=== PATIENT | male | born 1935 | race Caucasian/White ===

== ENCOUNTER 2017-07-01 06:15 | Emergency (ER) | payer MEDICARE, BC ==
[~2017-07-01] VITALS: Ht 172.7 cm; Wt 71.2 kg
[~2017-07-01 06:15] MED LIST: LACT1CAP72 GT; LISI5TAB45 PO; LORA2VIA11 IV; METO50TA7 PO; QUET25TA PO; SPIR25TA PO
--- NOTE | 2017-07-01 06:20 | NUR ---
82 YO FEMALE BB RA FROM HOME. PATIENT IS ALERT AND ORIENTED X 3, PATIENT STATES SHE FEELS WEAK. NO SINGLE SIDED WEAKNESS NOTED, NO FACIAL DROOP, ALL EXTREMITIES MOVING FREELY. PATIENT ASSISTED TO ER BED BY EMS. PATIENT GOWNED, PLACED ON PRODUCE WEIGHER. SKIN WARM AND DRY, RESP EVEN AND UNLABORED. AWAITING ORDERS FROM PROVIDER, WILL CONTINUE TO MONITOR
[2017-07-01] MEDS ORDERED: IV NS 0.9% 500 ML BAG IV ONE (06:30)
--- NOTE | 2017-07-01 06:30 | NUR ---
MEDICATED PT ORDERED
--- NOTE | 2017-07-01 06:33 | NUR ---
EMT AT BED SIDE FOR EKG
--- NOTE | 2017-07-01 06:45 | NUR ---
VITAL SIGNS UPDATED.
[2017-07-01 07:27] LABS: BASOPHILS % (AUTO) 0.7 % (0.0-2.0); EOSINOPHILS # (AUTO) 0.1 /CMM (0.0-0.7); EOSINOPHILS % (AUTO) 1.9 % (0.0-6.0); HEMATOCRIT 37 % (39-51); HEMOGLOBIN 13.1 g/dL (13.5-17.5); LYMPHOCYTES # (AUTO) 1.2 /CMM (0.8-4.8); LYMPHOCYTES % (AUTO) 19.3 % (20.0-44.0); MEAN CORPUSCULAR HEMOGLOBIN 32 PG (26.0-33.0); MEAN CORPUSCULAR HGB CONC 35 g/dl (31.0-36.0); MEAN CORPUSCULAR VOLUME 90 fL (80-96); MONOCYTES # (AUTO) 0.5 /CMM (0.1-1.30); MONOCYTES % (AUTO) 8.8 % (2.0-12.0); NEUTROPHILS # (AUTO) 4.2 /CMM (1.8-8.9); NEUTROPHILS % (AUTO) 69.3 % (43.0-81.0); PLATELET COUNT (AUTO) 202 /CMM (150-450); RDW COEFFICIENT OF VARIATION 14.1 (11.5-15.0); RED BLOOD CELL COUNT(AUTO) 4.16 MIL/uL (4.5-6.0); WHITE BLOOD COUNT (AUTO) 6.1 K/uL (4.3-11.0)
[2017-07-01 07:38] LABS: CALCIUM, SERUM 9.1 mg/dL (8.5-10.1); CARBON DIOXIDE 25 mmol/L (21-32); CHLORIDE 101 mmol/L (98-107); CREATININE 1.3 mg/dL (0.6-1.3); GLUCOSE 145 mg/dL (74-106); POTASSIUM 3.4 mmol/L (3.5-5.1); SODIUM SERUM 139 mmol/L (136-145); UREA NITROGEN, BLOOD 21 mg/dL (7-18)
[2017-07-01 07:41] LABS: INR 2.35 (0.87-1.13)
[2017-07-01 07:44] LABS: ALANINE AMINOTRANSFERASE 17 U/L (12-78); ALBUMIN 3.7 g/dL (3.4-5.0); ALKALINE PHOSPHATASE 50 U/L (46-116); ASPARTATE AMINOTRANSFERASE 18 U/L (15-37); BILIRUBIN,TOTAL 0.7 mg/dL (0.2-1.0); TOTAL PROTEIN, SERUM 7.6 g/dL (6.4-8.2)
[2017-07-01 07:48] LABS: TROPONIN I < 0.017 ng/mL (0.00-0.056)
[2017-07-01] MEDS ORDERED: IV NS 0.9% 1,000 ML BAG IV ONE (08:00)
[2017-07-01 08:33] LABS: BILIRUBIN,DIRECT 0.2 mg/dL (0.0-0.2)
--- NOTE | 2017-07-01 08:56 | NUR ---
URINE SAMPLE COLLECTED AND SENT TO LAB
[2017-07-01 08:59] LABS: APPEARANCE,URINE SL CLOUDY (CLEAR); BILIRUBIN,URINE NEGATIVE (NEGATIVE); BLOOD, URINE NEGATIVE Ery/uL (NEGATIVE); COLOR,URINE YELLOW (YELLOW); KETONES,URINE NEGATIVE (NEGATIVE); LEUKOCYTE ESTERASE ,URINE NEGATIVE (NEGATIVE); NITRITE, URINE NEGATIVE (NEGATIVE); PROTEIN,URINE NEGATIVE (NEGATIVE); UGLUCOSE NEGATIVE (NEGATIVE); UROBILINOGEN,URINE 0.2 EU/dL (0.2)
[2017-07-01 10:59] VITALS: BP 130/80
--- NOTE | 2017-07-01 11:00 | NUR ---
Patient discharged to home in stable condition. Written and verbal after care instructions given. Patient verbalizes understanding of instruction.IV removed. Catheter intact and site benign. Pressure and 4x4 applied to site. No bleeding noted.
== END 2017-07-01 11:00 | disposition home or self-care (01) ==
LOC: ER 06:16
DX: R53.1 Weakness (principal); I11.0 Hypertensive heart disease with heart failure; I50.9 Heart failure, unspecified; I48.91 Unspecified atrial fibrillation; Z85.46 Personal history of malignant neoplasm of prostate; Z88.0 Allergy status to penicillin
CPT/HCPCS: 36415; 71045-TC; 80048-TC; 80076-TC; 81000-TC; 84484-TC; 85025-TC; 85730-TC; A4606; J7030; J7040; Z7610

== ENCOUNTER 2018-01-11 02:59 | Inpatient (IN) | payer MEDICARE, BC ==
[2018-01-11] VITALS (8 sets, daily range): BP systolic 117–147; BP diastolic 61–97
[~2018-01-11] VITALS: Ht 174 cm; Wt 78.5 kg
--- NOTE | 2018-01-11 03:10 | NUR ---
PT [id number] FR HOME FOR C/O LLQ ABD PAIN X1DAY. PT DENIES N/V, BLOOD IN STOOL, DIARRHEA. PT STATES LAST BOWEL MOVEMENT WAS TODAY BEFORE ARRIVAL. PT IS AAOX4. RESPIRATIONS EVEN AND UNLABORED. SKIN WARM AND INTACT. NO ACUTE DISTRESS NOTED. PT PLACED IN GOWN AND ON MONITOR.
--- NOTE | 2018-01-11 03:13 | NUR ---
MD AT BEDSIDE FOR EVALUATION
--- NOTE | 2018-01-11 03:20 | NUR ---
IV INITIATED RIGHT ARM 18G. LABS DRAWN FROM SITE. BLOOD GIVEN TO GLASS SCULLION AT BEDSIDE
[2018-01-11 03:26] LABS: BASOPHILS % (AUTO) 0.4 % (0.0-2.0); EOSINOPHILS % (AUTO) 2.2 % (0.0-6.0); HEMATOCRIT 43 % (39-51); HEMOGLOBIN 13.8 g/dL (13.5-17.5); LYMPHOCYTES # (AUTO) 1.1 /CMM (0.8-4.8); LYMPHOCYTES % (AUTO) 19.4 % (20.0-44.0); MEAN CORPUSCULAR HEMOGLOBIN 30 PG (26.0-33.0); MEAN CORPUSCULAR HGB CONC 32 g/dl (31.0-36.0); MEAN CORPUSCULAR VOLUME 93 fL (80-96); MONOCYTES # (AUTO) 0.5 /CMM (0.1-1.30); MONOCYTES % (AUTO) 9.1 % (2.0-12.0); NEUTROPHILS % (AUTO) 68.9 % (43.0-81.0); PLATELET COUNT (AUTO) 222 /CMM (150-450); RDW COEFFICIENT OF VARIATION 14.1 (11.5-15.0); RED BLOOD CELL COUNT(AUTO) 4.67 MIL/uL (4.5-6.0); WHITE BLOOD COUNT (AUTO) 5.9 K/uL (4.3-11.0)
[2018-01-11 03:42] LABS: CALCIUM, SERUM 9.1 mg/dL (8.5-10.1); CARBON DIOXIDE 26 mmol/L (21-32); CHLORIDE 99 mmol/L (98-107); CREATININE 1.4 mg/dL (0.6-1.3); GLUCOSE 136 mg/dL (74-106); POTASSIUM 3.2 mmol/L (3.5-5.1); SODIUM SERUM 136 mmol/L (136-145); UREA NITROGEN, BLOOD 18 mg/dL (7-18)
--- NOTE | 2018-01-11 03:45 | NUR ---
PT BROUGHT BY RADIOLOGY FOR CT
[2018-01-11 03:51] LABS: ALANINE AMINOTRANSFERASE 21 U/L (12-78); ALKALINE PHOSPHATASE 61 U/L (46-116); ASPARTATE AMINOTRANSFERASE 22 U/L (15-37); BILIRUBIN,DIRECT 0.1 mg/dL (0.0-0.2); BILIRUBIN,TOTAL 0.6 mg/dL (0.2-1.0); LIPASE 408 U/L (73-393); TOTAL PROTEIN, SERUM 7.7 g/dL (6.4-8.2)
--- NOTE | 2018-01-11 03:54 | NUR ---
PT BROUGHT BACK FROM CT
--- NOTE | 2018-01-11 04:13 | NUR ---
URINE COLLECTED. CALLED LAB FOR PIPELINE WELDER
[2018-01-11 04:27] LABS: APPEARANCE,URINE CLEAR (CLEAR); BILIRUBIN,URINE NEGATIVE (NEGATIVE); BLOOD, URINE NEGATIVE Ery/uL (NEGATIVE); COLOR,URINE YELLOW (YELLOW); KETONES,URINE NEGATIVE (NEGATIVE); LEUKOCYTE ESTERASE ,URINE NEGATIVE (NEGATIVE); NITRITE, URINE NEGATIVE (NEGATIVE); PROTEIN,URINE NEGATIVE (NEGATIVE); UGLUCOSE NEGATIVE (NEGATIVE); UROBILINOGEN,URINE 0.2 EU/dL (0.2)
--- NOTE | 2018-01-11 04:46 | NUR ---
ROOM 304-2
[2018-01-11] MEDS ORDERED: FLAGYL/NS RTU 500 MG/100 ML PIGGYBACK IV ONE (05:00)
[2018-01-11] MEDS ORDERED: CIPROFLOXACIN IV RTU 400 MG in PREMIX 1 EA IV SCH (05:00)
[2018-01-11] MEDS ORDERED: METRONIDAZOLE 500MG/ NS 100ML 100 ML IV ONE (05:16)
[2018-01-11 05:23] LABS: B-TYPE NATRIURETIC PEPTIDE 291 PG/ML (0-125); TROPONIN I < 0.017 ng/mL (0.00-0.056)
--- NOTE | 2018-01-11 05:28 | NUR ---
REPORT GIVEN TO JERONIMO ARREDONDO FOR HILARY
[2018-01-11] MEDS ORDERED: CIPROFLOXACIN IV RTU 200 ML IV ONE (05:30)
[2018-01-11 05:31] LABS: INR 1.05 (0.87-1.13)
--- NOTE | 2018-01-11 05:53 | NUR ---
PT TRANSFERRED TO 304-2 PER ACLS PROTOCOL
--- NOTE | 2018-01-11 06:36 | NUR ---
RN ADMITTING NOTE; ADMITTED A 82 Y/O, M. A, OX4. BREATHING EVENLY. NO SOB/ NAD. SKIN WARM AND DRY, PT AMBULATED THE BED. VSS. NO C/O PAIN OR DISCOMFORT AT THIS TIME. REPORTED FEELING MUCH BETTER, KEPT PT NPO TILL FURTHER ORDER FROM THE MD. PT IS RECEIVING CIPRO IV AT THIS TIME W/ NO A/R. IV SITE INTACT AND PATENT W/ NO S/S OF INFX OR INFILTRATION. NEEDS ATTENDED . BED LOW LOCKED. CALL LIGHT WITHIN REACH. WILL CONT TO MONITOR AND WILL F/U W/ MD'S ORDERS ./
--- NOTE | 2018-01-11 06:40 | NUR ---
PT DOES NOT HAVE THE LIST OF HIS HOME MEDS WITH HIM AND DOES NOT RECALL THEM AT HIS TIME. PCP'S INFO (DR. CARTWRIGHT [phone] AND PHARMACY'S INFO : [facility] [phone] WS OBTAINED FROM THE PT. WILL ENDORSE TO AM SHIFT FOR F/U.
[2018-01-11] MEDS ORDERED: ACETAMINOPHEN 650 MG/SUPP.RECT RC PRN (07:00)
[2018-01-11] MEDS ORDERED: ENALAPRILAT DIHYD. (2.5MG/ML) 1.25 MG/ML VIAL IV PRN (07:00)
[2018-01-11] MEDS ORDERED: ONDANSETRON HCL/PF 4 MG/2 ML VIAL IVP PRN (07:00)
[2018-01-11] MEDS ORDERED: Potassium Chloride 20 MEQ in IV D5/0.45 NACL 1,000 ML IV PRN (07:00)
[2018-01-11] MEDS ORDERED: MORPHINE SULFATE INJ 4 MG/ML DISP.SYRIN IV PRN (07:00)
--- NOTE | 2018-01-11 07:30 | NUR ---
TELE/RN OPENING NOTE PATIENT IS RECEIVED IN BED AWAKE. ALERT AND ORIENTED X3. HARD OF HEARING. DENIES SOB. RESPIRATION REGULAR AND UNLABORED. DENIES PAIN. EXTERNAL TELE MONITOR ON AND READING CONTROLLED AFIB. RFA G 18 PATENT AND SALINE LOCKED. PATIENT NPO. BED LOW AND LOCKED. SIDE RAILS UP X3. CALL LIGHT WITHIN REACH. WILL CONTINUE TO MONITOR.
[2018-01-11] MEDS ORDERED: LEVOFLOXACIN 500 MG /D5W 100ML 500 MG in PREMIX 1 EA IV ONE (09:00)
[2018-01-11] MEDS: METOPROLOL TARTRATE 25 MG TABLET PO SCH ×2 (09:00→21:11)
[2018-01-11] MEDS: ASPIRIN 81 MG TAB.CHEW PO SCH (09:00)
[2018-01-11] MEDS ORDERED: PANTOPRAZOLE 40 MG VIAL IV SCH (09:00)
[2018-01-11] MEDS ORDERED: SERT25TA5 PO (09:30)
[2018-01-11] MEDS ORDERED: PANT40TA4 PO (09:30)
[2018-01-11] MEDS ORDERED: LEVO100T9 PO (09:30)
[2018-01-11] MEDS ORDERED: FURO40TA5 PO (09:30)
[2018-01-11] MEDS ORDERED: POTA10TA15 PO (09:30)
[2018-01-11] MEDS ORDERED: RIVA10TA PO (09:30)
[2018-01-11] MEDS ORDERED: SIMV10TA6 PO (09:30)
[2018-01-11] MEDS ORDERED: METF500T7 PO (09:30)
[2018-01-11] MEDS ORDERED: LINA5TAB PO (09:30)
[2018-01-11] MEDS ORDERED: LISI2.5T2 PO (09:30)
[2018-01-11] MEDS: POTASSIUM CL. PREMIX PERIPHER. 50 ML IV SCH ×4 (09:57→14:19)
[2018-01-11 10:24] LABS: THYROID STIMULATING HORMONE 0.265 uIU/mL (0.358-3.74)
[2018-01-11 11:08] LABS: MAGNESIUM 2.1 mg/dL (1.8-2.4); PHOSPHORUS 4.1 mg/dL (2.5-4.9)
--- NOTE | 2018-01-11 11:50 | NUR ---
MS/RN NOTE RECEIVED DIET ORDER OF CLEAR LIQUID FROM VEDA SERNA. NOTED AND CARRIED OUT.
--- NOTE | 2018-01-11 14:00 | NUR ---
MS/RN NOTE FLAGYL 500 IV NOT DELIVERED BY PHARM YET DESPITE FOLLOW UP CALLS ARE MADE.
--- NOTE | 2018-01-11 15:00 | NUR ---
MS/RN NOTE FLAGYL 500 IV NOT DELIVERED BY PHARM YET DESPITE FOLLOW UP CALLS ARE MADE.
--- NOTE | 2018-01-11 15:17 | NUR ---
MS/RN NOTE VEDA SERNA IS MADE AWARE THAT THE PATIENT TOLERATED CLEAR LIQUID DIET WELL. NO C/O ABDOMINAL PAIN. NO NAUSEA, VOMITING. PER VEDA SERNA THE DIET TO UPGRADE TO FULL LIQUID STARTING 01/11/18 DINNER. THE ORDER IS READ BACK, VERIFIED. NOTED AND CARRIED OUT.
[2018-01-11] MEDS: METRONIDAZOLE 500MG/ NS 100ML 500 MG in PREMIX 1 EA IV SCH ×2 (15:27→21:11)
--- NOTE | 2018-01-11 15:33 | NUR ---
MS/RN NOTE FLAGYL 500 IV IS ADMINISTERED LATE DUE TO PHARM LATE DELIVERY.
[2018-01-11] MEDS: LACTOBACILLUS RHAMNOSUS GG 1 EACH CAP.SPRINK GT SCH (17:12)
[2018-01-11] MEDS: SIMVASTATIN 10 MG TABLET PO SCH (17:12)
--- NOTE | 2018-01-11 18:07 | NUR ---
MS/RN CLOSING NOTE PATIENT ALERT AND ORIENTED X2. FREQUENT VERBAL CUE ARE GIVEN TO INCREASE ORIENTATION. DENIES SOB AT THIS TIME. RESPIRATION REGULAR AND UNLABORED. PATIENT IN ROOM AIR AND SATURATION AT 97%. DENIES PAIN AT THIS TIME. PATIENT CONTINENT AND PRESSES CALL LIGHT FOR ASSISTANCE. RAC G 22 PATENT AND SALINE LOCKED. NO S/S INFILTRATION AT THIS IV SITE. PATIENT TOLERATED FULL LIQUID DIET WELL. NO C/O ABDOMINAL PAIN. ABDOMEN SOFT AND NON-DISTENDED. ALL FOUR QUADS HAS POSTIVE BOWEL SOUNDS. DENIES NAUSEA/VOMITING. BED LOW AND LOCKED. SIDE RAILS UP X3. CALL LIGHT WITHIN REACH. WILL ENDORSE TO DISTRIBUTOR SALES CONSULTANT.
--- NOTE | 2018-01-11 19:00 | NUR ---
MS RN OPENING NOTE RECEIVE PATIENT AWAKE IN BED, A/O X 3, NO SOB OR DISTRESS NOTED, CALL LIGHT WITHIN REACH. SAFETY MEASURES IMPLEMENTED. WILL CONTINUE TO MONITOR THROUGHOUT SHIFT.
[2018-01-12] MEDS: METRONIDAZOLE 500MG/ NS 100ML 500 MG in PREMIX 1 EA IV SCH ×3 (05:05→21:00)
[2018-01-12 05:51] LABS: BASOPHILS % (AUTO) 0.3 % (0.0-2.0); EOSINOPHILS % (AUTO) 1.5 % (0.0-6.0); HEMATOCRIT 40 % (39-51); HEMOGLOBIN 13.1 g/dL (13.5-17.5); LYMPHOCYTES # (AUTO) 1.4 /CMM (0.8-4.8); LYMPHOCYTES % (AUTO) 21.4 % (20.0-44.0); MEAN CORPUSCULAR HEMOGLOBIN 31 PG (26.0-33.0); MEAN CORPUSCULAR HGB CONC 33 g/dl (31.0-36.0); MEAN CORPUSCULAR VOLUME 94 fL (80-96); MONOCYTES # (AUTO) 0.6 /CMM (0.1-1.30); MONOCYTES % (AUTO) 10.1 % (2.0-12.0); NEUTROPHILS # (AUTO) 4.2 /CMM (1.8-8.9); NEUTROPHILS % (AUTO) 66.7 % (43.0-81.0); PLATELET COUNT (AUTO) 193 /CMM (150-450); RDW COEFFICIENT OF VARIATION 14.2 (11.5-15.0); RED BLOOD CELL COUNT(AUTO) 4.27 MIL/uL (4.5-6.0); WHITE BLOOD COUNT (AUTO) 6.3 K/uL (4.3-11.0)
[2018-01-12 06:21] LABS: ALANINE AMINOTRANSFERASE 25 U/L (12-78); ALBUMIN 3.6 g/dL (3.4-5.0); ALKALINE PHOSPHATASE 54 U/L (46-116); ASPARTATE AMINOTRANSFERASE 16 U/L (15-37); BILIRUBIN,TOTAL 0.6 mg/dL (0.2-1.0); CALCIUM, SERUM 8.9 mg/dL (8.5-10.1); CARBON DIOXIDE 28 mmol/L (21-32); CHLORIDE 103 mmol/L (98-107); CREATININE 1.1 mg/dL (0.6-1.3); GLUCOSE 92 mg/dL (74-106); MAGNESIUM 1.9 mg/dL (1.8-2.4); PHOSPHORUS 2.7 mg/dL (2.5-4.9); POTASSIUM 3.6 mmol/L (3.5-5.1); SODIUM SERUM 139 mmol/L (136-145); UREA NITROGEN, BLOOD 10 mg/dL (7-18)
--- NOTE | 2018-01-12 06:21 | NUR ---
MS RN CLOSING NOTES ASLEEP AND EASILY AWAKEN, STABLE, TOLERATING ROOM AIR 97%. NOT IN DISTRESS. RESPIRATION EVEN AND UNLABORED. KEPT CLEAN AND DRY AND COMFORTABLE, ALL NURSING CARE RENDERED. NEEDS ATTENDED AND ANTICIPATED. ON LOW BED AT ALL TIMES TO ENSURE SAFETY. SAFE HAZARD FREE ENVIRONMENT PROVIDED. CALL LIGHT WITHIN EASY TO REACH. WILL ENDORSE NEXT SHIFT CONTINUITY OF CARE.
[2018-01-12 06:29] LABS: CHOLESTEROL 153 mg/dL (<200); HDL CHOLESTEROL 52 mg/dL (40-60); LDL 103 mg/dL (0-99); TRIGLYCERIDES 58 mg/dL (30-150)
--- NOTE | 2018-01-12 07:20 | NUR ---
MS/RN OPENING NOTE PATIENT ALERT AND ORIENTED X2. PATIENT IN ROOM AIR AND DENIES SOB. RESPIRATION REGULAR AND UNLABORED. DENIES PAIN. THE PATIENT IN NO APPARENT DISTRESS. RAC G 22 PATENT AND SALINE LOCKED. VERBAL CUES ARE GIVEN TO KEEP SAFETY AWARENESS HIGH. BED LOW AND LOCKED. SIDE RAILS UP X3. CALL LIGHT WITHIN REACH. WILL CONTINUE TO MONITOR.
--- NOTE | 2018-01-12 07:45 | NUR ---
MS/RN NOTE DR GALVAN (RECEIVING CLERK) IS MADE AWARE OF ECG RESULT AND PER MD NO NEW ORDER.
[2018-01-12 08:00] VITALS: BP 135/100
[2018-01-12] MEDS ORDERED: LEVOFLOXACIN 250 MG /D5W 50 ML 250 MG in PREMIX 1 EA IV SCH (09:00)
[2018-01-12] MEDS: METFORMIN XR 500 MG TAB.SR.24H PO SCH (09:00)
[2018-01-12] MEDS: POTASSIUM CHLORIDE 10 MEQ TABLET.SA PO SCH (09:16)
[2018-01-12] MEDS: LACTOBACILLUS RHAMNOSUS GG 1 EACH CAP.SPRINK GT SCH ×2 (09:16→17:08)
[2018-01-12] MEDS: PANTOPRAZOLE 40 MG TABLET.DR PO SCH (09:17)
[2018-01-12] MEDS: SERTRALINE HCL 25 MG TABLET PO SCH (09:17)
[2018-01-12] MEDS: LINAGLIPTIN 5 MG TABLET PO SCH (09:17)
[2018-01-12] MEDS: FUROSEMIDE 40 MG TABLET PO SCH (09:17)
[2018-01-12] MEDS: LEVOTHYROXINE SODIUM 100 MCG TABLET PO SCH (09:17)
[2018-01-12] MEDS: ASPIRIN 81 MG TAB.CHEW PO SCH (09:18)
[2018-01-12] MEDS: METOPROLOL TARTRATE 25 MG TABLET PO SCH ×2 (09:18→21:01)
[2018-01-12] MEDS: LISINOPRIL (5MG) 5 MG TABLET PO SCH (09:18)
[2018-01-12] MEDS: HYDROCHLOROTHIAZIDE 25 MG TABLET PO SCH (09:19)
--- NOTE | 2018-01-12 11:45 | NUR ---
MS/RN NOTE WHILE ADMINISTERING LEVOFLOXACIN IV NOTED REDNESS AT THE IV SITE. VEDA SERNA IS MADE AWARE. LEVOFLOXACIN IS DISCONTINUED PER VEDA SERNA AND CHARTED IN ALLERGY SECTION.
[2018-01-12] MEDS: DOCUSATE SODIUM 100 MG CAPSULE PO SCH ×2 (12:50→17:08)
[2018-01-12 16:00] VITALS: BP 144/77
[2018-01-12] MEDS ORDERED: RIVAROXABAN 10 MG TABLET PO SCH (17:00)
[2018-01-12] MEDS: SIMVASTATIN 10 MG TABLET PO SCH (17:08)
--- NOTE | 2018-01-12 18:24 | NUR ---
MS/RN CLOSING NOTE PATIENT ALERT AND ORIENTED X3. DENIES SOB. RESPIRATION REGULAR AND UNLABORED. DENIES SOB, PAIN. IN NO APPARENT DISTRESS. RAC G 22 PATENT AND SALINE LOCKED. BED LOW AND LOCKED. SIDE RAILS UP X3. CALL LIGHT WITHIN REACH. WILL ENDORSE TO REGISTERED MEDICAL TRANSCRIPTIONIST.
[2018-01-12 20:00] VITALS: BP 149/88
[2018-01-13] MEDS: METRONIDAZOLE 500MG/ NS 100ML 500 MG in PREMIX 1 EA IV SCH ×2 (04:57→12:10)
--- NOTE | 2018-01-13 06:36 | NUR ---
MS RN CLOSING NOTES ASLEEP AND EASILY AWAKEN, STABLE, NOT IN DISTRESS. TOLERATING ROOM AIR 98%, RESPIRATION EVEN AND UNLABORED. KEPT CLEAN AND DRY AND COMFORTABLE, ALL NURSING CARE RENDERED. NEEDS ATTENDED AND ANTICIPATED. GOOD SKIN CARE PROVIDED. NO COMPLAIN OF PAIN AT THIS TIME. ON LOW BED AT ALL TIMES TO ENSURE SAFETY. SAFE HAZARD FREE ENVIRONMENT PROVIDED. CALL LIGHT WITHIN EASY TO REACH. WILL ENDORSE NEXT SHIFT CONTINUITY OF CARE.
[2018-01-13 08:00] VITALS: BP 133/77
[2018-01-13] MEDS: LACTOBACILLUS RHAMNOSUS GG 1 EACH CAP.SPRINK GT SCH (08:32)
[2018-01-13] MEDS: DOCUSATE SODIUM 100 MG CAPSULE PO SCH (08:32)
[2018-01-13] MEDS: FUROSEMIDE 40 MG TABLET PO SCH (08:32)
[2018-01-13] MEDS: METFORMIN XR 500 MG TAB.SR.24H PO SCH (08:33)
[2018-01-13] MEDS: LEVOTHYROXINE SODIUM 100 MCG TABLET PO SCH (08:33)
[2018-01-13] MEDS: ASPIRIN 81 MG TAB.CHEW PO SCH (08:33)
[2018-01-13] MEDS: LISINOPRIL (5MG) 5 MG TABLET PO SCH (08:33)
[2018-01-13] MEDS: PANTOPRAZOLE 40 MG TABLET.DR PO SCH (08:34)
[2018-01-13] MEDS: HYDROCHLOROTHIAZIDE 25 MG TABLET PO SCH (08:34)
[2018-01-13] MEDS: LINAGLIPTIN 5 MG TABLET PO SCH (08:34)
[2018-01-13] MEDS: SERTRALINE HCL 25 MG TABLET PO SCH (08:34)
[2018-01-13] MEDS: POTASSIUM CHLORIDE 10 MEQ TABLET.SA PO SCH (08:35)
[2018-01-13 08:38] VITALS: BP 133/77
[2018-01-13] MEDS: METOPROLOL TARTRATE 25 MG TABLET PO SCH (08:38)
[2018-01-13] MEDS ORDERED: METR500T PO (09:53)
[2018-01-13] MEDS ORDERED: METO25TA20 PO (09:53)
--- NOTE | 2018-01-13 10:43 | NUR ---
alert, oriented, appropriate. ambulatory, self care. no complaint of abdominal pain.
--- NOTE | 2018-01-13 15:34 | NUR ---
HAS AN ORDER TO GO HOME, ALERT, ORIENTED, AND VERY APPROPRIATE. RX GIVEN ( FLAGYL AND LOPRESSOR), MADE AWARE HE WILL BE GOING TO HIS OWN PHARMACY TO [employer] [facility] THE MEDICATIONS. HE WILL HAVE AN APPOINTMENT TOMORROW AT 1500, ARRANGEMENT MADE FOR HIM. VERBALIZED UNDERSTANDING, PAPER WORK SIGNED, TAXI VOUCHER GIVEN. PATIENT IS DISCHARGED TO HOME, THE ADDRESS PATIENT GAVE TO US., HL , AND NAME BAND OUT.
== END 2018-01-13 15:40 | disposition home or self-care (01) | DRG 291 ==
LOC: ER 03:08 → TELE 05:02 → MED 09:47
PROVIDERS: ADMIT Internal Medicine; ATTEND Internal Medicine
DX: I11.0 Hypertensive heart disease with heart failure (principal); K85.90 Acute pancreatitis without necrosis or infection, unspecified; I48.91 Unspecified atrial fibrillation; I50.23 Acute on chronic systolic (congestive) heart failure; E11.9 Type 2 diabetes mellitus without complications; K52.9 Noninfective gastroenteritis and colitis, unspecified; Z85.46 Personal history of malignant neoplasm of prostate; Z87.891 Personal history of nicotine dependence; I25.10 Atherosclerotic heart disease of native coronary artery without angina pectoris; E87.6 Hypokalemia; E78.5 Hyperlipidemia, unspecified
CPT/HCPCS: 36415; 71045-TC; 80048-TC; 80053-TC; 80061-TC; 80076-TC; 81000-TC; 82378; 83690-TC; 83735-TC; 83880; 84100-TC; 84439-TC; 84443-TC; 84484-TC; 85025-TC; 85610-TC; 87081-TC; 93307-TC; A4216; A4606; J0744; J1956; J3480; J3490; J7050; Z7610

== ENCOUNTER 2018-01-14 13:02 | Outpatient (CLI) | payer MEDICARE, BC ==
[~2018-01-14 13:02] MED LIST changes: +FURO40TA5 PO; +LEVO100T9 PO; +LINA5TAB PO; +LISI2.5T2 PO; -LISI5TAB45 PO; -LORA2VIA11 IV; +METF500T7 PO; +METO25TA20 PO; -METO50TA7 PO; +METR500T PO; +PANT40TA4 PO; +POTA10TA15 PO; -QUET25TA PO; +RIVA10TA PO; +SERT25TA5 PO; +SIMV10TA6 PO
[2018-01-14 13:30] VITALS: BP 90/60
== END 2018-01-14 23:59 | disposition home or self-care (01) ==
LOC: MSC 13:02
PROVIDERS: ATTEND Internal Medicine
DX: Z51.89 Encounter for other specified aftercare (principal); I25.10 Atherosclerotic heart disease of native coronary artery without angina pectoris; I10 Essential (primary) hypertension; Z79.01 Long term (current) use of anticoagulants; E78.5 Hyperlipidemia, unspecified; E03.9 Hypothyroidism, unspecified; K21.9 Gastro-esophageal reflux disease without esophagitis; E11.9 Type 2 diabetes mellitus without complications; Z79.84 Long term (current) use of oral hypoglycemic drugs; I48.91 Unspecified atrial fibrillation

== ENCOUNTER 2022-01-27 15:22 | Inpatient (IN) | payer MEDICARE, BC ==
[~2022-01-27] VITALS: Ht 172.7 cm; Wt 83.5 kg
[~2022-01-27 15:22] MED LIST changes: +METF-881 PO; -METF500T7 PO; -PANT40TA4 PO; +PANT40TA49 PO; -SIMV10TA6 PO; +SIMV10TA98 PO
--- NOTE | 2022-01-27 15:28 | NUR ---
[id number] FROM HOME C/O CHEST PAIN 08/30 STARTED LAST NIGHT, GIVEN 325MG ASPIRIN AND 0.8 NITRO SPRAY WITH NO RELIEF. PT STATED THAT HE CANT DESCRIBED THE PAIN. STATED THAT HE HAS BEEN FEELING WEAK AND TIRED FOR A COUPLE DAYS. ATTACHED TO MONITOR. DR LEACH AT BEDSIDE AWAITING MD ORDERS.
--- NOTE | 2022-01-27 15:33 | NUR ---
LABS DRAWN AND COLLECTED AT BEDSIDE
--- NOTE | 2022-01-27 15:40 | NUR ---
COVID TEST COLLECTED AND SENT
[2022-01-27 15:48] LABS: BASOPHILS % (AUTO) 0.2 % (0.0-2.0); EOSINOPHILS % (AUTO) 0.7 % (0.0-6.0); HEMATOCRIT 37 % (39-51); HEMOGLOBIN 12.6 g/dL (13.5-17.5); LYMPHOCYTES # (AUTO) 0.7 K/uL (0.8-4.8); MEAN CORPUSCULAR HGB CONC 34 g/dl (31.0-36.0); MEAN CORPUSCULAR VOLUME 92 fL (80-96); MONOCYTES # (AUTO) 0.9 K/uL (0.1-1.30); MONOCYTES % (AUTO) 11.1 % (2.0-12.0); NEUTROPHILS # (AUTO) 6.5 K/uL (1.8-8.9); PLATELET COUNT (AUTO) 192 K/uL (150-450); RED BLOOD CELL COUNT(AUTO) 4.04 MIL/uL (4.5-6.0); WHITE BLOOD COUNT (AUTO) 8.1 K/uL (4.3-11.0)
--- NOTE | 2022-01-27 15:55 | NUR ---
MOVE SHEET SUBMITTED.
[2022-01-27 16:01] LABS: CALCIUM, SERUM 9.3 mg/dL (8.5-10.1); CARBON DIOXIDE 26 mmol/L (21-32); CHLORIDE 98 mmol/L (98-107); CREATININE 1.2 mg/dL (0.6-1.3); GLUCOSE 141 mg/dL (74-106); POTASSIUM 3.8 mmol/L (3.5-5.1); SODIUM SERUM 132 mmol/L (136-145); UREA NITROGEN, BLOOD 17 mg/dL (7-18)
[2022-01-27] MEDS ORDERED: CLOP75TA15 PO (16:05)
[2022-01-27] MEDS ORDERED: CARV12.52 PO (16:05)
--- NOTE | 2022-01-27 18:25 | NUR ---
BED GIVEN 304-1
--- NOTE | 2022-01-27 18:46 | NUR ---
REPORT GIVEN TO CALLIE FOR HILARY
[2022-01-27] MEDS ORDERED: MAGNESIUM HYDROXIDE 30 ML UDC PO PRN (19:00)
[2022-01-27] MEDS ORDERED: INSULIN REGULAR, HUMAN 100 UNIT/ML 3 ML VIAL SQ PRN (19:00)
[2022-01-27] MEDS ORDERED: ONDANSETRON HCL/PF 4 MG/2 ML VIAL IVP PRN (19:00)
[2022-01-27] MEDS ORDERED: ZOLPIDEM TARTRATE 5 MG TABLET PO PRN (19:00)
[2022-01-27] MEDS ORDERED: Z GUARD REMEDY 4 OZ OINT TP PRN (19:00)
[2022-01-27] MEDS ORDERED: *INSULIN REGULAR(HUMULIN R)HUM 100 UNIT/ML VIAL SQ PRN (19:00)
[2022-01-27] MEDS ORDERED: ACETAMINOPHEN 325 MG TABLET PO PRN (19:00)
[2022-01-27] MEDS ORDERED: DEXTROSE 50%-WATER 50 ML DISP.SYRIN IV PRN (19:00)
[2022-01-27] MEDS ORDERED: MAG HYDROX/AL HYDROX/SIMETH 30 ML UDC PO PRN (19:00)
--- NOTE | 2022-01-27 19:04 | NUR ---
PT TRASNPORTED TO TELE FLOOR WITH ACLS PROTOCOLS IN PLACE
--- NOTE | 2022-01-27 19:30 | NUR ---
RN NOTES PT ARRIVED TO UNIT VIA GURNEY PT NOTED TO BE ABLE TO AMBULATE TO BED WITH STEADY GAIT. PT A/O X4 AND [place] ON THE RIGHT EAR ABLE TO MAKE NEEDS KNOW.PT REPORTING NO CHEST PAIN OR ANY OTHER KIND OF PAIN AT THIS TIME. PT NOTED WITH IV ACCESS ON THE L HAND 18G S/L NO REDNESS OR BLEEDING AT SITE. PT PLACED ON TELE MONITOR READING A- FIB 90S. PT REFUSED SKIN ASSESMENT X3 PT STATED " I DON'T HAVE OPEN SKIN DEAR ... I WOULD MUCH RATHER STAY IN THE CLOTHES IN WEARING I DON'T WANT TO CHANGE" PT ORIENTED TO ROOM AND UNIT. CALL LIGHT WITHINREACH. TABLE WITHIN REACH. BED IN LOW LOCKED POSITION HOB ELEVATED FOR SAFETY ALL NEEDS MET AT THIS TIME .
[2022-01-27 20:00] VITALS: BP 136/74
[2022-01-27 20:01] LABS: EOSINOPHILS % (MANUAL) 1 % (0-4); LYMPHOCYTES % (MANUAL) 6 % (16-48); MONOCYTES % (MANUAL) 5 % (0-11.0); NEUTROPHILS % (MANUAL) 88 (42-76)
[2022-01-27] MEDS: CARVEDILOL 12.5 MG TABLET PO SCH (20:02)
[2022-01-27] MEDS: BLOOD SUGAR DIAGNOSTIC 1 EACH STRIP VI SCH (21:14)
[2022-01-28] VITALS: BP 126/66
[2022-01-28 04:00] VITALS: BP 114/67
[2022-01-28 06:36] LABS: BASOPHILS % (AUTO) 0.3 % (0.0-2.0); EOSINOPHILS % (AUTO) 1.7 % (0.0-6.0); HEMATOCRIT 36 % (39-51); HEMOGLOBIN 12.2 g/dL (13.5-17.5); LYMPHOCYTES # (AUTO) 0.9 K/uL (0.8-4.8); LYMPHOCYTES % (AUTO) 14.9 % (20.0-44.0); MEAN CORPUSCULAR HGB CONC 34 g/dl (31.0-36.0); MEAN CORPUSCULAR VOLUME 92 fL (80-96); MONOCYTES # (AUTO) 0.7 K/uL (0.1-1.30); MONOCYTES % (AUTO) 12.5 % (2.0-12.0); NEUTROPHILS # (AUTO) 4.1 K/uL (1.8-8.9); NEUTROPHILS % (AUTO) 70.6 % (43.0-81.0); PLATELET COUNT (AUTO) 171 K/uL (150-450); RED BLOOD CELL COUNT(AUTO) 3.89 MIL/uL (4.5-6.0); WHITE BLOOD COUNT (AUTO) 5.8 K/uL (4.3-11.0)
--- NOTE | 2022-01-28 06:37 | NUR ---
television news reporter closing note pt remains in bed comfortable sleeping at this time easily woken up. all needs met. call light within reach table within reach. bed locked and in low position. all due meds given and tolerated well. will endorse care to day shift nurse for continuity of care
[2022-01-28 06:56] LABS: CALCIUM, SERUM 9.1 mg/dL (8.5-10.1); MAGNESIUM 2.1 mg/dL (1.8-2.4); PHOSPHORUS 2.9 mg/dL (2.5-4.9); POTASSIUM 3.7 mmol/L (3.5-5.1)
[2022-01-28] MEDS: BLOOD SUGAR DIAGNOSTIC 1 EACH STRIP VI SCH ×3 (06:58→17:29)
[2022-01-28 07:00] LABS: THYROID STIMULATING HORMONE 0.636 uIU/mL (0.358-3.74)
--- NOTE | 2022-01-28 07:20 | NUR ---
ms rn received on bed, awake,alert,oriented x4,denies pain at this time, no sob noted, w/ adequate saturation on room air, will monitor patient.
[2022-01-28] MEDS ORDERED: PANTOPRAZOLE 40 MG TABLET.DR PO SCH (07:30)
[2022-01-28] MEDS ORDERED: LEVOTHYROXINE SODIUM 100 MCG TABLET PO SCH (07:30)
[2022-01-28 08:00] VITALS: BP 116/69
--- NOTE | 2022-01-28 08:05 | NUR ---
ms rn was seen by hadley white ,waiting for orders.
[2022-01-28] MEDS: CARVEDILOL 12.5 MG TABLET PO SCH ×2 (08:15→17:29)
[2022-01-28] MEDS ORDERED: LISINOPRIL (5MG) 5 MG TABLET PO SCH (09:00)
[2022-01-28] MEDS ORDERED: SPIRONOLACTONE 25 MG TABLET PO SCH (09:00)
[2022-01-28] MEDS ORDERED: ASPIRIN EC 81 MG TABLET.DR PO SCH (09:00)
[2022-01-28] MEDS ORDERED: SERTRALINE HCL 25 MG TABLET PO SCH (09:00)
[2022-01-28] MEDS ORDERED: CLOPIDOGREL BISULFATE 75 MG TABLET PO SCH (09:00)
[2022-01-28 12:00] VITALS: BP 115/54
[2022-01-28] MEDS ORDERED: EMPA10TA PO (15:09)
[2022-01-28 16:00] VITALS: BP 104/48
[2022-01-28 17:29] VITALS: BP 110/55
--- NOTE | 2022-01-28 17:50 | NUR ---
ms rn patient is to bed discharge today per md order, will be going after dinner via taxi.
[2022-01-28] MEDS ORDERED: SIMVASTATIN 10 MG TABLET PO SCH (18:00)
--- NOTE | 2022-01-28 18:20 | NUR ---
ms rn went home via taxi, discharge instructions given and understood,all needs attended.
== END 2022-01-28 19:04 | disposition home or self-care (01) | DRG 291 ==
LOC: ER 15:23 → TELE 18:50
PROVIDERS: ADMIT Student in an Organized Health Care Education/Training Program; ATTEND Student in an Organized Health Care Education/Training Program
DX: I11.0 Hypertensive heart disease with heart failure (principal); I50.33 Acute on chronic diastolic (congestive) heart failure; D68.59 Other primary thrombophilia; I48.91 Unspecified atrial fibrillation; E78.5 Hyperlipidemia, unspecified; E11.9 Type 2 diabetes mellitus without complications; Z95.2 Presence of prosthetic heart valve; Z86.79 Personal history of other diseases of the circulatory system; Z85.46 Personal history of malignant neoplasm of prostate; Z79.01 Long term (current) use of anticoagulants; Z79.02 Long term (current) use of antithrombotics/antiplatelets; Z88.1 Allergy status to other antibiotic agents; Z88.0 Allergy status to penicillin; Z79.84 Long term (current) use of oral hypoglycemic drugs; Z79.899 Other long term (current) drug therapy; Z87.891 Personal history of nicotine dependence; I27.20 Pulmonary hypertension, unspecified; I25.10 Atherosclerotic heart disease of native coronary artery without angina pectoris; R07.89 Other chest pain
CPT/HCPCS: 36415; 71045-TC; 80048-TC; 82962-TC; 83735-TC; 83880; 84100-TC; 84443-TC; 84484-TC; 85025-TC; 85730-TC; 87081-TC; 93307-TC; C9803; G0378; J1815